=== PATIENT | female | born 1980 | race Caucasian/White ===

== ENCOUNTER 2017-02-21 05:55 | Inpatient (IN) ==
--- NOTE | 2017-02-20 21:28 | Discharge Summary ---
<Elodia Velarde - Last Filed: 02/20/17 21:26> Date of Encounter: 02/20/17 - Discharge Diagnosis (1) Status post total replacement of left shoulder Priority: Primary Status: Acute (2) Left rotator cuff tear arthropathy Priority: Primary Status: Acute - Discharge Medications Home Medications: OxyCODONE Immed Rel [Roxicodone 5 MG] 5 - 10 mg PO Q6HR PRN #40 tablet 02/20/17 [Rx] ALPRAZolam [Xanax 0.25 MG Tablet] 0.25 mg PO DAILY PRN 02/21/17 [History] Acetaminophen/Butalbital/Caffe [Fioricet] 1 each PO Q6HR PRN 02/21/17 [History] FLUoxetine HCl [Fluoxetine HCl] 40 mg PO DAILY 02/21/17 [History] Gabapentin [Neurontin] 800 mg PO TID 02/21/17 [History] Topiramate [Topamax] 25 mg PO BID 02/21/17 [History] Allergies/Adverse Reactions: 3 Allergy/AdvReac Type Severity Reaction Status Date / Time No Known Allergies Allergy Verified 02/21/17 07:40 Primary care physician: Daniel Box - Patient Status Disposition: Home Health Service Condition: Good - Discharge Instructions Follow Up With: German Quintanilla MD [Partnered Physician] - 03/03/17 8:00 am Jaiden Esquivel MD [Primary Care Provider] - Additional Instructions: Discharge Instructions: Total Shoulder Please call [facility] ([phone]), your Primary Care Physician, or report to the Emergency Room if you have any of the following symptoms: Nausea, vomiting, fever greater that 101.5, swelling, chest pain, shortness of breath, increased pain/redness/drainage/odor for your incision site, numbness/ tingling, or any other concerning symptoms. ACTIVITY: Always keep your arm in the sling. Do not raise your arm away from your body. Do not use your arm to help with getting in or out of bed. No weight bearing permitted. Only perform those exercises given to you by your therapist. MEDICATIONS: Upon discharge resume your home medications. Take all the medications as prescribed. Take a stool softener if taking narcotic pain medications. Stool softeners are only effective if you drink enough fluids. Drink 6-8 glass of water or fluids a day, unless this is not allowed for another health problem. Despite using stool softeners, if you haven't had a bowel movement in 3 days, please switch to a gentle laxative. Gentle laxatives are sold over the counter. You should have a bowel movement within 24 hours, if not call the office. You will be discharged from the hospital with a prescription for pain medication. You are encouraged to decrease the use of narcotic pain medication as tolerated. Should you require a refill, please call the office. [facility] prescribes narcotic pain medication for only 4-6 weeks after surgery. If you require pain medication beyond this time period, you may be referred to your Primary Care Physician or to the Pain Clinic for further evaluation. Plan ahead for refills on pain medication as many narcotics either need to be picked up at the office or mailed. It is best to call 48-72 hours in advance of needing a prescription refill so you don't run out of medication. To help control the post-operative pain, you may take NSAIDs (Aleve,Advil, Motrin, Ibuprofen, Naprosyn) or Tylenol as prescribed on the bottle in addition to the pain medication. WOUND CARE: Leave the dressing on for 7-10 days. You may change the dressing if it becomes saturated greater than 50%. Do not get the dressing wet at anytime. Wash your hands with antibacterial soap, rinse and dry prior to any wound care. If you have berlin the visiting nurse or rehab facility can remove the stapes 10-14 days after surgery and place steri-strips across the wound. Leave the steri-strips in place until they fall off on their own. You may let water from the shower run on top of the steri-strips. If you do not have a visiting nurse or rehab facility, you will need to return to the office at 10-14 days for the berlin to be removed. If you have itching or redness around the dressing call the office. FOLLOW-UP: Please follow up with your surgeon in the orthopedic clinic, as scheduled - Hospital Course Hospital course: Ms. Higgins is a 36 year old female - Time Spent with Patient Total time spent providing and/or coordinating discharge services: <German Quintanilla - Last Filed: 02/22/17 06:52> Date of Encounter: 02/22/17 Time of Encounter: 06:51 - Discharge Diagnosis (1) Status post total replacement of left shoulder Priority: Primary Status: Acute (2) Left rotator cuff tear arthropathy Priority: Primary Status: Chronic Primary care physician: Daniel Box - Patient Status Functional capacity at discharge: uses cane/walker Overall status at discharge: patient is progressing back to baseline - Hospital Course Hospital course: Ms. Higgins is a 36 year old female Status post left total shoulder replacement patient discharged same day - Time Spent with Patient Total time spent providing and/or coordinating discharge services:
[2017-02-21] MEDS ORDERED: Vancomycin 1,000 MG in D5% in Water 250 ML IVPB ONE (06:24)
[2017-02-21] MEDS ORDERED: Lidocaine -MPF 1% 2 ML VIAL ID ONE (06:24)
[2017-02-21] MEDS ORDERED: Plasma-Lyte A (PH 7.4) 1,000 ML IVC SCH (06:30)
--- NOTE | 2017-02-21 06:43 | History & Physical Report ---
Date of Encounter: 02/21/17 Time of Encounter: 06:43 24 Hour HP Update - Instructions Instructions: If the History and Physical is less than 30 days old and was completed prior to A.M. admission and or procedure and has NOT been updated on calendar day of procedure please complete this update prior to performing procedure. - Update Patient reports changes in Medical Condition: No Changes in examination, assessment, or condition: No Changes in Medication: No Preop tests/diagnostics Reviewed: Yes Surgery Remains Indicated: Yes Consent for Planned Operative Procedure(s) Verified: Yes - Pre-Operative Checklist Preoperative Checklist Indicated: No Prophylactic Antibiotic Ordered: Yes Is VTE Prophylaxis Indicated?: Yes
[2017-02-21] MEDS ORDERED: Famotidine 20 MG/2 ML VIAL IVP ONE (06:50)
[2017-02-21] MEDS ORDERED: Gabapentin 300 MG CAPSULE PO ONE (06:50)
--- NOTE | 2017-02-21 06:57 | Anesthesia Evaluation PreOp ---
Date of Encounter: 02/21/17 Time of Encounter: 06:50 - Past History Planned Operation: Left Total Shoulder Replacement, JOE Cardiac History: Denies any Significant Hx Pulmonary History: Former smoker [employer] History: Denies Any Significant HX Other Medical History: Denies Any Significant HX Anesthesia History: No Prior Anesthetic Complications : No Test: Negative Alcohol Use: none Drug use: none Medications and Allergies OxyCODONE Immed Rel [Roxicodone 5 MG] 5 - 10 mg PO Q6HR PRN #40 tablet 02/20/17 [Rx] 3 Allergy/AdvReac Type Severity Reaction Status Date / Time No Known Allergies Allergy Verified 02/21/17 06:24 - Meds/Allergy Pre-op Review Medications Reviewed: Yes Allergies Reviewed: Yes Beta Blockers on Current Med List: No Anesthesia Results - Labs Laboratory Tests 02/04/17 02/04/17 12:53 12:53 Hgb 13.1 Hct 37.7 Plt Count 192 Sodium 138 Potassium 3.7 BUN 11 Creatinine 0.85 Anesthesia Exam Vital Signs/O2 Sat/Glucose, Most Current Temp Pulse Resp BP Pulse Ox 02/21/17 06:20 97.9 F 66 18 109/68 99 Height: 5'7 Weight: 134 lbs NPO (# of Hours): MN Pain Scale: 1 - HEENT Pupil (Motor): Pupils equal, EOMI Mallampati: II Teeth: Normal Oral Opening: Greater than 3 - [employer]ORCYCLE [employer] LOC: Oriented MOTORCYCLE [employer]DER Motor: Normal RUE, Normal LUE, Normal RLE, Normal LLE, Normal Face [employer]ORCYCLE [employer] Sensory: Normal: RUE, LUE, RLE, LLE, Face - Cardiac Rhythm: Regular Murmur: None JVD: No Carotid Bruit: No - Pulmonary Breath Sounds: bilateral Clear Respiratory Effort: Symmetrical Anesthesia Assess/Plan ASA Score: 2 Modified [place] Scale for Level of Consciousness: Cooperative, oriented, and tranquil Anesthetic Plan: General, Regional Monitoring Plan: Standard Monitors Recovery Plan: PACU (Discussed GA and RA, agrees to proceed)
[2017-02-21] MEDS ORDERED: *HR* FentaNYL (PF) 100 MCG/2 ML VIAL ONE (07:19)
[2017-02-21] MEDS ORDERED: *HR* Propofol 200 MG/20 ML VIAL IVP ONE (07:20)
[2017-02-21] MEDS ORDERED: *HR* Midazolam HCl 2 MG/2 ML VIAL ONE (07:20)
[2017-02-21] MEDS ORDERED: Lidocaine -MPF 2% 2 ML VIAL ONE (07:21)
[2017-02-21] MEDS ORDERED: *HR* Succinylcholine 200 MG/10 ML VIAL IVP ONE (07:21)
[2017-02-21] MEDS ORDERED: Ondansetron 4 MG/2 ML VIAL ONE (07:22)
[2017-02-21] MEDS ORDERED: Dexamethasone 4 MG/ML VIAL ONE (07:22)
[2017-02-21] MEDS ORDERED: Lidocaine -MPF 4% 5 ML AMPUL ONE (07:23)
[2017-02-21] MEDS ORDERED: ROPIVACAINE HCL/PF 0.5% 30 ML VIAL ONE (07:39)
[2017-02-21] MEDS ORDERED: Ondansetron 4 MG/2 ML VIAL IVP ONE (08:18)
[2017-02-21] MEDS ORDERED: *HR* HYDROmorphone (PF) 1 MG/ML SYRINGE IVP PRN ×2 (08:18→10:08)
[2017-02-21] MEDS ORDERED: *HR* Labetalol 20 MG/4 ML SYRINGE IVP PRN (08:18)
--- NOTE | 2017-02-21 08:18 | Anesthesia Procedures ---
Date of Encounter: 02/21/17 Time of Encounter: 08:02 Procedures: Anesthesia - Nerve Block Procedure Date: 02/21/17 Time: 08:02 Surgical Procedure: left total shoulder reverse Checklist: Correct Patient Identifier, Correct procedure, History checked Correct side: Left Blood Thinner: No Monitor Applied: EKG, BP, Pulse Oximetry Supplemental Oxygen via Nasal Cannula (L/min): 2 Sedation: Versed (mg): 2 Sedation: Fentanyl (mcg): 100 Indication: Post Op Analgesia Pre-op Neuro Deficits: No Block Type: Interscalene, Other (T2) Catheter placed: No Sterile Technique: Yes Ultrasound used: Yes Anatomy identified: Yes Visual spread of Local: Yes Neuro Stimulation: No Blood on Needle Aspiration: No Smooth Injection of Local: Yes Pain with Injection of Local: No Prep: Chlorhexadine Needle: 22 x 50 mm Stimuplex Local: Ropivacaine (0.5% rop plain) Volume (cc): 30 Number of Attempts: 1 Complications: None/effective block Vitals: vss though out, block per request of surgeon.
[2017-02-21] MEDS ORDERED: *HR* Phenylephrine 10 MG/ML VIAL ONE (08:20)
--- NOTE | 2017-02-21 08:59 | Orthopedic Operative Note ---
Date of procedure: 02/21/17 Pre-op diagnosis: Left shoulder rotator cuff compromise painful hardware Post-op diagnosis: same Procedure: Procedure: Total Shoulder Replacment Reverse, left Estimated blood loss: 100 cc Hardware: Metal and polyethylene replacement: Arthrex small glenoid baseplate, 2 4.5 screws. 1 6.5 screw, 36 central glenosphere, 6 humeral stem, 3 poly insert Exam Under anesthesia: Extreme restriction of motion all planes Procedural Notes: Partial humeral resurfacing compromising posterior superior rotator cuff. Operative procedure: The patient was brought to the operating room and placed on the operating room table. After general anesthesia was administered the operative shoulder was examined. Findings were noted. The patient was placed in the modified beachchair position. All pressure points were padded appropriately. And the head was stabilized in the neutral position. The operative extremity was prepped and draped in the sterile surgical fashion. The patient received IV antibiotics prior to skin incision. A standard deltopectoral approach was made to the operative shoulder. Incision was made to the skin and subcutaneous tissue,hemo stasis was obtained with Bovie cautery. Using careful blunt dissection the cephalic vein was identified and mobilized medially. The deltopectoral interval was developed and the clavipectoral fascia was incised. The subscap was released off the lesser tuberosity and tagged with #2 FiberWire suture. The humerus was dislocated patient noted to have a partial humeral resurfacing compromising the posterior superior cuff. The hardware was removed without incident, and the humeral cut was made along the anatomic neck. Anterior and posterior Bankart retractors were placed to expose the glenoid. The glenoid guide was seated and the centering hole was made. It was reamed with the appropriate reamer. The small baseplate was seated and secured with (2) 4.5 screws and one 6.5 screw. The baseplate was irrigated and dried and the early 6 central Glenosphere was seated and secured with the Lai taper. The Lai taper was tested and found to be secure the humerus was redislocated and prepared with the diaphyseal reamers, followed by a broaching process up to the appropriate size of in the patient's anatomic version. The metaphyseal reamer was then utilized. Trial reduction found the shoulder to be relocatable. Trial components were and The appropriate 5 stem was impacted in place in the patient's anatomic version. Trial reduction found the shoulder to be relocatable and stable with the appropriate 3 Trial component was removed and the real 3 Colette was seated and secured the shoulder was reduced. The shoulder had good motion and excellent stability and no evidence of dislocation. The deep tissue was irrigated with pulse irrigation. The PA close the shoulder. The deltopectoral interval was closed with a running #1 PDS suture, subcutaneous tissue was irrigated and closed with 0 PDS suture, the skin was closed with Dermabond. The patient was placed in a sterile dressing, abduction brace and extubated. The patient was then transferred to the recovery room in stable condition. Anesthesia: RICCO Surgeon: German Quintanilla Army Officer: Elodia Velarde Condition: stable Disposition: PACU
--- NOTE | 2017-02-21 09:27 | Physician Discharge Referral ---
Home Health/Hosp Referral Info Transfer to: Home Health Attending Provider: Provider in Charge Post Discharge: PCP - Diagnosis (1) Status post total replacement of left shoulder Priority: Primary Status: Acute (2) Left rotator cuff tear arthropathy Priority: Primary Status: Chronic - Respiratory Orders None Smoking Cessation: Smoking cessation has been advised. For more information, call the [employer] Tobacco Quit Line at 0-466-LWEX-NOW. - Dressing/Wound Care Type of Dressing/Treatments w/Frequency: Shoulder - LEFT Opsite dressing, leave intact until first post-operative visit. If dressing becomes >50% saturated, contact office, remove dressing and place appropriate dressing in its place. Do not allow for dressing to get wet. Zipine dressing in place - to be removed at POW#2 PT: Precautions x 6 weeks Apply cold therapy wrap 3-6x/day for 20 minutes at a time. Encourage ambulation throughout the day and incentive spirometer 10x/hour. Elevate affected extremity above heart as tolerated. Brace: Continue in Arm slingshot and physical therapy. Follow Total Shoulder precautions x 6 weeks. No lifting/pulling or pushing. - Diet/Nutrition Diet/Nutrition Orders: Regular - Activity Activity Orders: Up ad rosalba, Ambulate - Services Needed Following services are medically necessary services: Nursing, Home Health Aide, Physical Therapy, Occupational Therapy - Transfer Medications Prescriptions: OxyCODONE Immed Rel [Roxicodone 5 MG] 5 - 10 mg PO Q6HR PRN #40 tablet PRN Reason: Pain Home Medications: OxyCODONE Immed Rel [Roxicodone 5 MG] 5 - 10 mg PO Q6HR PRN #40 tablet 02/20/17 [Rx] ALPRAZolam [Xanax 0.25 MG Tablet] 0.25 mg PO DAILY PRN 02/21/17 [History] Acetaminophen/Butalbital/Caffe [Fioricet] 1 each PO Q6HR PRN 02/21/17 [History] FLUoxetine HCl [Fluoxetine HCl] 40 mg PO DAILY 02/21/17 [History] Gabapentin [Neurontin] 800 mg PO TID 02/21/17 [History] Topiramate [Topamax] 25 mg PO BID 02/21/17 [History] Allergies/Adverse Reactions: 3 Allergy/AdvReac Type Severity Reaction Status Date / Time No Known Allergies Allergy Verified 08/28/17 07:40 Certification: Further, I certify that my clinical findings support that this patient is homebound (i.e. absences from home require considerable and taxing effort and are for medical reasons or tenriism services or infrequently or short duration when for other reasons) because: Homebound Reason: Post-surgery restriction and or conditions limit ability to leave home Attestation: My signature below is to certify that this patient is under my care and that I, or nurse practitioner, or a physician's microbiology lab assistant working with me, has a face-to -face encounter with this patient.
[2017-02-21 09:35] LABS: Hemoglobin 12.8 g/dL (11.5-15.4)
[2017-02-21] MEDS ORDERED: Naloxone 0.4 MG/ML INJ IVP PRN (10:08)
[2017-02-21] MEDS ORDERED: ALPRAZolam 0.25 MG TABLET PO PRN (10:08)
[2017-02-21] MEDS ORDERED: ceFAZolin 2,000 MG in D5% in Water 100 ML IVPB SCH (10:08)
[2017-02-21] MEDS ORDERED: FLUoxetine 20 MG CAPSULE PO SCH (10:08)
[2017-02-21] MEDS ORDERED: Ondansetron 4 MG/2 ML VIAL IVP PRN (10:08)
[2017-02-21] MEDS ORDERED: Ringers Solution, Lactated 1,000 ML IVC SCH (10:08)
[2017-02-21] MEDS ORDERED: Topiramate 25 MG TABLET PO SCH (10:08)
[2017-02-21] MEDS ORDERED: Acetaminophen/Butalbital/CaffeineTABLET PO PRN (10:08)
[2017-02-21] MEDS ORDERED: MOM Conc 10 ML UD.LIQ PO PRN (10:08)
[2017-02-21] MEDS ORDERED: Sennosides 8.6 MG TABLET PO PRN (10:08)
[2017-02-21] MEDS ORDERED: *HR* OxyCODONE Immed Rel 5 MG TABLET PO PRN (10:08)
--- NOTE | 2017-02-21 10:17 | Anesthesia Evaluation Post Op ---
Date of Encounter: 02/21/17 Time of Encounter: 09:45 - Vital Signs Vital Signs: Vital Signs/O2 Sat/Glucose, Most Current Temp Pulse Resp BP Pulse Ox 02/21/17 10:01 97.8 F 73 18 111/64 100 02/21/17 09:45 97.4 F L 76 22 107/82 100 02/21/17 09:35 75 18 118/69 100 02/21/17 09:25 87 19 119/81 98 02/21/17 09:15 98.3 F 89 18 129/82 96 02/21/17 07:58 73 17 118/77 97 02/21/17 06:20 97.9 F 66 18 109/68 99 - Lungs Lungs: Clear Ascult./Percussion - Airway Airway: Non-obstructed - Cardiovascular Regular Rate - Mental Status Mental Status: Alert & Oriented, Answers Appropriately - Pain Pain Scale: 0 - Nausea Vomiting Nausea Vomiting: Not Present - Hydration Hydration: Ice chips - Discharge PostOp Status: Transfer Patient to floor
[2017-02-21 11:48] VITALS: BP 112/72
[2017-02-21] MEDS: *HR* OxyCODONE Immed Rel 5 MG TABLET PO PRN ×2 (11:56→16:11)
[2017-02-21] MEDS ORDERED: Gabapentin 400 MG CAPSULE PO SCH (15:00)
[2017-02-21] MEDS ORDERED: *HR* Enoxaparin 30 MG/0.3 ML SYRINGE SQ ONE (16:00)
[2017-02-21] MEDS ORDERED: *HR* Enoxaparin 30 MG/0.3 ML SYRINGE SQ SCH (18:00)
[2017-02-21] MEDS ORDERED: Temazepam 15 MG CAPSULE PO PRN (21:00)
== END 2017-02-21 16:35 | disposition home health service (06) | DRG 315 ==
LOC: SAMDAY 05:55 → 3NENU 10:01
PROVIDERS: ADMIT Orthopaedic Surgery; ATTEND Orthopaedic Surgery

== ENCOUNTER 2020-03-05 11:18 | Observation (INO) ==
[2020-03-05] MEDS ORDERED: *HR* LORazepam 2 MG/ML VIAL IVP ONE (11:42)
[2020-03-05] MEDS ORDERED: 0.9 % Sodium Chloride 500 ML IVC ONE (11:42)
[2020-03-05] MEDS ORDERED: Aspirin 81 MG TAB.CHEW PO ONE (11:42)
[2020-03-05 12:22] LABS: Bilirubin,Urine Negative (Negative); Blood,Urine Moderate (Negative); Clarity,Urine Clear (Clear); Color,Urine Light-Yellow (Yellow); Glucose,Urine (UA) Normal (Normal); Ketones,Urine Negative (Negative); Leukocyte Esterase,Urine Negative (Negative); Mucus,Urine Few per lpf (None-Few); Nitrite,Urine Negative (Negative); PH,Urine 6.5 pH Units (5.0-8.0); Protein,Urine Negative (Neg-Trace); Specific Gravity,Urine < 1.005 (1.010-1.025); Squamous Epithelial Cell,Urine Few per hpf (None-Few); Urobilinogen,Urine Normal (Normal)
[2020-03-05 12:43] LABS: Basophils % 0.5 %; Eosinophils # 0.1 K/mcL (0.0-0.6); Eosinophils % 1.8 %; Hematocrit 36.7 % (35.3-44.9); Hemoglobin 12.2 g/dL (11.5-15.4); Immature Granulocytes % 0.2 % (0-4); Mean Corpuscular HGB Conc 33.2 g/dL (31.6-35.5); Mean Corpuscular Hemoglobin 30.7 pg (28.0-33.3); Mean Corpuscular Volume 92.2 fL (83.0-100.0); Mean Platelet Volume 9.8 fL (9.4-12.4); Monocytes # 0.2 K/mcL (0.0-1.3); Monocytes % 3.8 %; Neutrophils # 3.7 K/mcL (1.6-8.9); Platelet Count 189 K/mcL (140-400); Red Blood Count 3.98 M/mcL (3.82-4.97); Red Cell Distribution Width 12.6 % (11.5-14.5); Segmented Neutrophils % 60.7 %
[2020-03-05 12:46] LABS: INR 0.9; Prothrombin Time 10.6 Seconds (9.4-12.1)
[2020-03-05 12:48] LABS: Activated Partial Thrombo Time 28.2 Seconds (26.0-36.0)
[2020-03-05 12:59] LABS: BUN/Creatinine Ratio 5 (6-26); Blood Urea Nitrogen 4 mg/dL (6-20); Calcium 8.4 mg/dL (8.6-10.3); Carbon Dioxide 25 mEq/L (23-29); Chloride 109 mEq/L (98-107); Glucose 82 mg/dL (70-105); Osmolality,Calculated 284 (280-300); Potassium 4.1 mEq/L (3.5-5.1); Sodium 139 mEq/L (136-145); eGFR For African Americans > 60 (> 60); eGFR For Non-African Americans > 60 (> 60)
[2020-03-05 13:00] LABS: Troponin I < 0.03 ng/mL (< 0.04)
[2020-03-05] MEDS ORDERED: *HR* FentaNYL (PF) 100 MCG/2 ML VIAL IVP ONE (13:37)
[2020-03-05] MEDS ORDERED: Isovue-370 500 ML BOTTLE IVP ONE (13:38)
[2020-03-05] MEDS ORDERED: Perflutren Lipid Microsphere 1.3 ML in 0.9 % Sodium Chloride 8.7 ML IVP PRN (16:01)
[2020-03-05] MEDS ORDERED: Naloxone 0.4 MG/ML INJ IVP PRN (16:01)
[2020-03-05] MEDS ORDERED: CAFFEINE PO PRN (17:05)
[2020-03-05] MEDS ORDERED: BUTALB PO PRN (17:05)
[2020-03-05] MEDS ORDERED: SUMAtriptan succinate 50 MG TABLET PO PRN (17:05)
[2020-03-05] MEDS ORDERED: ACETAMINOPHEN PO PRN (17:05)
[2020-03-05] MEDS ORDERED: Nitroglycerin 0.4 MG TAB.SUBL SL PRN (17:21)
[2020-03-05] MEDS: Nicotine 21 MG PATCH.TD24 TD SCH (17:39)
[2020-03-05] MEDS ORDERED: Ondansetron 4 MG/2 ML VIAL IVP PRN (17:46)
[2020-03-05] MEDS ORDERED: Morphine Sulfate 2 MG/ML SYRINGE IVP ONE (18:15)
[2020-03-05] MEDS ORDERED: Acetaminophen IV 500 MG/50 ML INFUS..BTL IVPB ONE (19:40)
[2020-03-05] MEDS: Gabapentin 400 MG CAPSULE PO SCH (20:49)
[2020-03-05] MEDS ORDERED: Divalproex (24 HR) 250 MG TABLET PO SCH (21:00)
[2020-03-06 01:05] LABS: Hematocrit 32.7 % (35.3-44.9); Hemoglobin 10.9 g/dL (11.5-15.4); Mean Corpuscular HGB Conc 33.3 g/dL (31.6-35.5); Mean Corpuscular Hemoglobin 30.3 pg (28.0-33.3); Mean Corpuscular Volume 90.8 fL (83.0-100.0); Mean Platelet Volume 9.6 fL (9.4-12.4); Platelet Count 178 K/mcL (140-400); Red Cell Distribution Width 12.6 % (11.5-14.5); White Blood Count 5.4 K/mcL (4.3-11.1)
[2020-03-06 01:29] LABS: BUN/Creatinine Ratio 8 (6-26); Blood Urea Nitrogen 5 mg/dL (6-20); Calcium 8.1 mg/dL (8.6-10.3); Carbon Dioxide 23 mEq/L (23-29); Chloride 111 mEq/L (98-107); Glucose 103 mg/dL (70-105); Magnesium 2.2 mg/dL (1.6-2.6); Osmolality,Calculated 290 (280-300); Potassium 3.8 mEq/L (3.5-5.1); Sodium 141 mEq/L (136-145); eGFR For African Americans > 60 (> 60); eGFR For Non-African Americans > 60 (> 60)
[2020-03-06] MEDS ORDERED: Acetaminophen IV 500 MG/50 ML INFUS..BTL IVPB ONE (05:07)
[2020-03-06] MEDS ORDERED: *HR* Enoxaparin 40 MG/0.4 ML SYRINGE SQ SCH (06:00)
[2020-03-06 06:52] VITALS: BP 105/73
[2020-03-06] MEDS ORDERED: Acetaminophen 325 MG TABLET PO ONE (08:45)
[2020-03-06] MEDS ORDERED: Vitamin B Complex/Vit C/Vit E 1 EACH TABLET PO SCH (09:00)
[2020-03-06] MEDS ORDERED: Regadenoson 0.4 MG/5 ML SYRINGE IVP ONE (09:08)
[2020-03-06] MEDS: Gabapentin 400 MG CAPSULE PO SCH (09:11)
[2020-03-06] MEDS: Nicotine 21 MG PATCH.TD24 TD SCH ×2 (09:21→14:13)
[2020-03-06] MEDS ORDERED: Acetaminophen/Butalbital/CaffeineTABLET PO PRN (10:00)
== END 2020-03-06 14:38 | disposition home or self-care (01) ==
LOC: 3BNU 11:18 → EMEROOARM 11:18 → SUATTDRO 15:32 → 3BNU 15:55
PROVIDERS: ADMIT Student in an Organized Health Care Education/Training Program; ATTEND Nurse Practitioner Adult Health